=== PATIENT | female | born 1990 | race African-American/Black ===

== ENCOUNTER 2017-07-12 12:17 | Observation (INO) | payer SELFPAY ==
[2017-07-12] MEDS ORDERED: IV RINGERS,LACTATED 1000ML 1,000 ML IV SCH (13:00)
[2017-07-12 13:08] LABS: BILIRUBIN,URINE SMALL (NEG); GLUCOSE,URINE NEGATIVE (NEG); NITRITE,URINE NEGATIVE (NEG); PH,URINE 6.5; PROTEIN,URINE NEGATIVE (NEG-TRACE)
[2017-07-12 13:17] LABS: BACTERIA,URINE MODERATE /HPF (0-FEW); RBC,URINE OCC /HPF (0-2); SQUAMOUS EPITHELIAL CELL,UR MOD /LPF
== END 2017-07-12 13:45 | disposition home or self-care (01) ==
LOC: 3 SO LND 12:17
PROVIDERS: ADMIT Specialist; ATTEND Specialist
DX: O62.9 Abnormality of forces of labor, unspecified (principal); O26.893 Other specified pregnancy related conditions, third trimester; R42 Dizziness and giddiness; Z3A.37 37 weeks gestation of pregnancy
CPT/HCPCS: 81001; 87086; G0378; G0379

== ENCOUNTER 2017-11-29 15:01 | Emergency (ER) | payer OTHER ==
[2017-11-29] MEDS: IBUPROFEN 800 MG TABLET. PO (16:40)
== END 2017-11-29 17:15 | disposition home or self-care (01) ==
LOC: ER 15:01
DX: S62.91XA Unspecified fracture of right hand, initial encounter for closed fracture (principal); W22.01XA Walked into wall, initial encounter; Y93.89 Activity, other specified; Y99.8 Other external cause status; Y92.89 Other specified places as the place of occurrence of the external cause
CPT/HCPCS: 29125; 73110; 73130; 99284-25

== ENCOUNTER 2018-02-17 17:10 | Emergency (ER) | payer OTHER ==
[2018-02-17] MEDS ORDERED: HYDROcodone/APAP 5/325MG 1 TAB TABLET PO (18:15)
== END 2018-02-17 18:41 | disposition home or self-care (01) ==
LOC: ER 18:41
DX: S62.307A Unspecified fracture of fifth metacarpal bone, left hand, initial encounter for closed fracture (principal); X58.XXXA Exposure to other specified factors, initial encounter; Y93.89 Activity, other specified; Y99.8 Other external cause status; Y92.89 Other specified places as the place of occurrence of the external cause
CPT/HCPCS: 29125; 73130; 99284-25